=== PATIENT | male | born 1945 | race Caucasian/White ===

== ENCOUNTER 2023-08-21 09:15 | Emergency (ER) | payer OTHER ==
[~2023-08-21] VITALS: Wt 115.7 kg
[2023-08-21 09:58] LABS: BASO % 0.5 % (0.0-1.0); EOS # 0.1 10*3/uL (0.0-0.4); EOS % 1.7 % (1.0-4.0); HEMATOCRIT 48.7 % (42.0-52.0); LYMPH # 0.8 10*3/uL (1.3-4.4); LYMPH % 9.4 % (27.0-41.0); MEAN CELL VOLUME 92.6 fl (80.0-94.0); MEAN CORPUSCULAR HGB 30.4 pg (27.0-31.0); MEAN CORPUSCULAR HGB CONC 32.9 g/dl (33.0-37.0); MEAN PLATELET VOLUME 11.4 fl (9.6-12.3); MONO # 0.6 10*3/uL (0.1-1.0); MONO % 7.1 % (3.0-9.0); NEUT # 6.8 10*3/uL (2.3-7.9); NEUT % 81.1 % (47.0-73.0); PLATELET COUNT AUTOMATED 240 10*3/uL (130-400); RED BLOOD COUNT 5.26 10*6/uL (4.50-5.90); RED CELL DISTRI WIDTH 13.2 % (0-14.5); WHITE BLOOD COUNT 8.3 10*3/uL (4.8-10.8)
[2023-08-21 10:19] LABS: ALKALINE PHOSPHATASE 63 U/L (46-116); BUN 12 mg/dl (9-23); CHLORIDE 105 mmol/L (98-107); POTASSIUM 3.9 mmol/L (3.4-5.1); SGPT/ALT 16 U/L (5-49); TOTAL PROTEIN 6.9 gm/dL (6.0-8.0)
[2023-08-21 10:51] LABS: BILIRUBIN Negative (Negative); BLOOD Negative (Negative); CLARITY Clear (Clear); COLOR Yellow (Yellow); GLUCOSE 3+ (Negative); KETONE 1+ (Negative); LEUKO ESTERASE Negative (Negative); NITRITE Negative (Negative); PH 6.5 (4.5-8.0); SPECIFIC GRAVITY >= 1.030 (1.001-1.030)
[2023-08-21 11:27] LABS: BACTERIA TRACE
[2023-08-21] MEDS ORDERED: LASIX20 MG PO (11:59)
[2023-08-21] MEDS ORDERED: POTASSIUM CHLO20 ME3 PO (11:59)
== END 2023-08-21 12:04 | disposition home or self-care (01) ==
LOC: ED 09:15
PROVIDERS: Family Medicine
DX: I50.9 Heart failure, unspecified (principal); I87.2 Venous insufficiency (chronic) (peripheral); Z88.0 Allergy status to penicillin; Z20.822 Contact with and (suspected) exposure to COVID-19

== ENCOUNTER 2023-09-29 18:24 | Emergency (ER) | payer OTHER ==
[~2023-09-29] VITALS: Ht 177.8 cm; Wt 108.0 kg
[~2023-09-29 18:24] MED LIST: LASIX20 MG PO; POTASSIUM CHLO20 ME3 PO
[2023-09-29 19:17] LABS: HEMATOCRIT 52.5 % (42.0-52.0); MEAN CELL VOLUME 88.5 fl (80.0-94.0); MEAN CORPUSCULAR HGB 29.3 pg (27.0-31.0); MEAN CORPUSCULAR HGB CONC 33.1 g/dl (33.0-37.0); MEAN PLATELET VOLUME 11.1 fl (9.6-12.3); PLATELET COUNT AUTOMATED 298 10*3/uL (130-400); RED BLOOD COUNT 5.93 10*6/uL (4.50-5.90); RED CELL DISTRI WIDTH 12.7 % (0-14.5); WHITE BLOOD COUNT 24.1 10*3/uL (4.8-10.8)
[2023-09-29 19:19] LABS: MANUAL DIFF REFLEX YES
[2023-09-29 19:39] LABS: ALKALINE PHOSPHATASE 73 U/L (46-116); BUN 28 mg/dl (9-23); CHLORIDE 92 mmol/L (98-107); POTASSIUM 3.3 mmol/L (3.4-5.1); SGPT/ALT 16 U/L (5-49); TOTAL PROTEIN 7.4 gm/dL (6.0-8.0)
[2023-09-29 19:50] LABS: BASOPHILS 1 % (0-1); PLATELET SUFFICIENCY NORMAL (NORMAL); TOTAL CELLS COUNTED 100 #CELLS
[2023-09-29 20:39] LABS: BILIRUBIN Negative (Negative); BLOOD Trace-Lysed (Negative); CLARITY Cloudy (Clear); COLOR Yellow (Yellow); GLUCOSE 3+ (Negative); KETONE Negative (Negative); LEUKO ESTERASE 2+ (Negative); NITRITE Negative (Negative); SPECIFIC GRAVITY 1.025 (1.001-1.030)
[2023-09-29 20:49] LABS: BACTERIA 4+; WBC 41-50 wbc/hpf (0-5)
== END 2023-09-30 02:17 | disposition short-term general hospital (02) ==
LOC: ED 18:24
PROVIDERS: Physician Assistant Medical
DX: R65.21 Severe sepsis with septic shock (principal); I47.10 Supraventricular tachycardia, unspecified; N39.0 Urinary tract infection, site not specified; Z88.0 Allergy status to penicillin